=== PATIENT | male | born 1955 | race Two or more races ===

== ENCOUNTER 2019-01-17 13:00 | Outpatient (AMBR) | payer MEDICARE, MEDICAID, SELFPAY ==
--- NOTE | 2019-01-07 10:47 | PTNOTE_ITS ---
PT Outpatient Daily Note Date of Service: January 07, 2019 OP Daily Note Visit Reasons: left knee pain Outpatient Physical Therapy Treatment Date: 01/07/19 Subjective: Pt's knee feels good. Pt mention that his PCP is planning to do a chest MRI. At this point his providers are not sure why he's containing fluid in his body. His PCP gave him some water pill and he's lost 6 lbs Objective: Please see flow chart for list of ther ex performed Assessment: minimal exertion in therapy session; no noted SOB throughout PT se ssion. Pt advised to head back to PCP as indicated if he continues to have SOB. Pt's ambulation continues to improve with no antalgic gait Plan: Continue with PT Length of Time (minutes) of Treatment: 30 Minutes Office Procedures PT Procedures PT Date of Service: 01/07/19 Therapeutic Exercise 30 minutes: Yes
--- NOTE | 2019-01-09 11:19 | PT.ODAYNRPT ---
PT Outpatient Daily Note Date of Service: January 09, 2019 OP Daily Note Visit Reasons: left knee pain Outpatient Physical Therapy Treatment Date: 01/09/19 Subjective: Pt's knee feels good. No SOB lately. Pt will like his knee to be measure today Objective: Left Knee Flexion AROM: 121 deg Assessment: Pt exhibit good knee flexion AROM; balance and strength continues to improve with minimal exertion Plan: Continue with PT Length of Time (minutes) of Treatment: 30 Minutes Office Procedures PT Procedures PT Date of Service: 01/07/19 Therapeutic Exercise 30 minutes: Yes PT Procedures PT Date of Service: 01/09/19 Therapeutic Exercise 30 minutes: Yes
--- NOTE | 2019-01-17 14:15 | PT.ODAYNRPT ---
PT Outpatient Daily Note Date of Service: January 17, 2019 OP Daily Note Visit Reasons: left knee pain Outpatient Physical Therapy Treatment Date: 01/17/19 Subjective: pt doing well and wants to complete one more visit to be DC. Objective: see flow sheet. Assessment: pt performed well on his balance exercises. he has no complaints. although he would use his hand against the rail at times to keep from losing his balance but would not grab the rail. he ambulates well with no AD no compensation. he is able to step onto the stair case with no difficulty. overall pt is progressing well. he denied pain during and after ther ex. Plan: continue POC per PT. Length of Time (minutes) of Treatment: 30 Minutes Office Procedures PT Procedures PT Date of Service: 01/07/19 Therapeutic Exercise 30 minutes: Yes PT Procedures PT Date of Service: 01/09/19 Therapeutic Exercise 30 minutes: Yes PT Procedures PT Date of Service: 01/17/19 Therapeutic Exercise 30 minutes: Yes
== END 2019-02-04 23:59 | disposition home or self-care (01) ==
PROVIDERS: PCP Physician Assistant; Referring Provider Physician Assistant; Visit Provider Orthopaedic Surgery
DX: M17.12 Unilateral primary osteoarthritis, left knee (principal); R53.1 Weakness; R26.2 Difficulty in walking, not elsewhere classified; Z47.1 Aftercare following joint replacement surgery; Z96.652 Presence of left artificial knee joint
CPT/HCPCS: 97110

== ENCOUNTER → 2023-12-07 | Outpatient (CLI) | payer OTHER, SELFPAY ==
[2023-12-07 14:55] LABS: Calcium, Ionized 4.7 mg/dL (4.6-5.6)
[2023-12-07 15:17] LABS: Parathyroid Hormone Intact 55.6 pg/ml (18.5-88.0)
== END | disposition home or self-care (01) ==
LOC: COPL 14:37
PROVIDERS: PCP Internal Medicine; Referring Provider Internal Medicine; Visit Provider Internal Medicine
DX: E83.52 Hypercalcemia (principal)
CPT/HCPCS: 36415; 82330; 83970

== ENCOUNTER → 2023-12-11 | Outpatient (CLI) | payer OTHER, SELFPAY ==
[2023-12-11 12:47] LABS: Basophils # (Auto) 0.1 Thou/mm3 (0.0-0.2); Basophils % (Auto) 0 % (0-2.5); Eosinophils # (Auto) 0.2 Thou/mm3 (0.0-0.5); Eosinophils % (Auto) 1 % (0-10); Hematocrit 40.8 % (41.0-53.0); Hemoglobin 14.3 g/dL (13.5-16.0); Immature Granulocytes % (Auto) 0 % (0-0); Immature Granulocytes Auto 0.03 Thou/mm3 (0.00-0.00); Immature Reticulocyte Fraction 9.6 % (2.3-13.4); Lymphocytes % (Auto) 26 % (10-50); Mean Corpuscular Hemoglobin 29.2 pg (25.0-35.0); Mean Corpuscular Volume 83 fL (80-100); Monocytes # (Auto) 1.4 Thou/mm3 (0.0-0.8); Monocytes % (Auto) 12 % (0-12); Neutrophils # (Auto) 7.3 Thou/mm3 (1.8-7.7); Neutrophils % (Auto) 61 % (37-80); Nucleated Red Blood Cell % 0 /100 WBC (0); Platelet Count 321 Thou/mm3 (140-440); RDW Standard Deviation 40.5 fL (35.1-43.9); Red Blood Count 4.89 Miln/mm3 (4.50-5.90); Reticulocyte % (Auto) 1.9 % (0.5-1.5); Reticulocyte Absolute Auto 91.4 Biln/L (25.0-75.0); Reticulocyte Hgb Content 33.1 pg (28.0-35.0); White Blood Count 11.9 Thou/mm3 (3.8-10.6)
[2023-12-11 13:04] LABS: Alanine Aminotransferase 32 U/L (10-49); Albumin, Serum 4.9 gm/dL (3.4-4.8); Albumin/Globulin Ratio 1.9 (1.2-2.2); Alkaline Phosphatase 83 U/L (46-116); Anion Gap 9 (7-16); Aspartate Amino Transferase 23 U/L (0-34); BUN/Creatinine Ratio 18 Ratio (12-20); Bilirubin,Total 0.5 mg/dL (0.3-1.2); Blood Urea Nitrogen 24 mg/dL (9-23); Calcium 10.6 mg/dL (8.3-10.6); Calcium (Corrected) 10.6 mg/dL (8.5-10.1); Carbon Dioxide 30.3 mMol/L (20.0-31.0); Chloride 94 mMol/L (98-107); Creatinine (Component) 1.3 mg/dL (0.6-1.3); Globulin 2.6 gm/dL (2.3-3.5); Glucose 204 mg/dL (74-106); Osmolality,Calculated 276 (275-295); Potassium 3.4 mMol/L (3.4-5.1); Sodium 133 mMol/L (136-145); Total Protein 7.5 gm/dL (5.7-8.2); eGFR 59 See Note
[2023-12-11 13:35] LABS: Ferritin 47 ng/mL (10.5-307.3); Iron 62 mcg/dL (65-175); Percent Iron Saturation 18 % (20-55); Total Iron Binding Capacity 330 mcg/dL (250-425); Unsaturated Iron Binding 268 (225-295)
[2023-12-11 14:07] LABS: Folate 15.24 ng/mL (>5.38); Vitamin B12 > 2000 pg/mL (211-911)
== END | disposition home or self-care (01) ==
LOC: SCTO 11:22
PROVIDERS: PCP Internal Medicine; Referring Provider Nurse Practitioner Family; Visit Provider Nurse Practitioner Family
DX: D64.9 Anemia, unspecified (principal)
CPT/HCPCS: 36415; 80053; 82607; 82728; 82746; 83540; 83550; 85025; 85046

== ENCOUNTER → 2023-12-14 | Outpatient (CLI) | payer OTHER, MEDICAID, SELFPAY ==
[2023-12-14 15:34] LABS: Urea Breath Test Negative (Negative)
== END | disposition home or self-care (01) ==
LOC: COPL 12:57
PROVIDERS: PCP Internal Medicine; Referring Provider Internal Medicine; Visit Provider Internal Medicine
DX: K59.00 Constipation, unspecified (principal)
CPT/HCPCS: 83013; 83014

== ENCOUNTER → 2023-12-18 | Outpatient (CLI) | payer OTHER, MEDICAID, SELFPAY ==
[2023-12-18 13:56] LABS: Basophils # (Auto) 0.1 Thou/mm3 (0.0-0.2); Basophils % (Auto) 1 % (0-2.5); Eosinophils # (Auto) 0.2 Thou/mm3 (0.0-0.5); Eosinophils % (Auto) 2 % (0-10); Hematocrit 44.1 % (41.0-53.0); Immature Granulocytes % (Auto) 0 % (0-0); Immature Granulocytes Auto 0.03 Thou/mm3 (0.00-0.00); Lymphocytes # (Auto) 3.6 Thou/mm3 (1.0-4.8); Lymphocytes % (Auto) 35 % (10-50); Mean Corpuscular Hemoglobin 28.6 pg (25.0-35.0); Mean Corpuscular Volume 84 fL (80-100); Monocytes % (Auto) 10 % (0-12); Neutrophils # (Auto) 5.6 Thou/mm3 (1.8-7.7); Neutrophils % (Auto) 53 % (37-80); Nucleated Red Blood Cell % 0 /100 WBC (0); Platelet Count 363 Thou/mm3 (140-440); RDW Standard Deviation 40.6 fL (35.1-43.9); Red Blood Count 5.25 Miln/mm3 (4.50-5.90); White Blood Count 10.5 Thou/mm3 (3.8-10.6)
== END | disposition home or self-care (01) ==
LOC: SCTO 12:08
PROVIDERS: PCP Internal Medicine; Referring Provider Nurse Practitioner Family; Visit Provider Nurse Practitioner Family
DX: D64.9 Anemia, unspecified (principal)
CPT/HCPCS: 36415; 85025

== ENCOUNTER 2023-12-19 13:37 | Outpatient (RCR) | payer OTHER, SELFPAY | END 2024-01-05 23:59 | disposition home or self-care (01) | LOC: SCTC 13:37 | PROVIDERS: PCP Internal Medicine; Referring Provider Internal Medicine; Visit Provider Nurse Practitioner Family | DX: D64.9 Anemia, unspecified (principal); M54.50 Low back pain, unspecified; R11.2 Nausea with vomiting, unspecified; I12.9 Hypertensive chronic kidney disease with stage 1 through stage 4 chronic kidney disease, or unspecified chronic kidney disease; E11.22 Type 2 diabetes mellitus with diabetic chronic kidney disease; N18.30 Chronic kidney disease, stage 3 unspecified; I25.10 Atherosclerotic heart disease of native coronary artery without angina pectoris; F10.11 Alcohol abuse, in remission; K21.9 Gastro-esophageal reflux disease without esophagitis | CPT/HCPCS: 99212; G0463 ==

== ENCOUNTER → 2024-01-09 | Outpatient (CLI) | payer OTHER, MEDICAID, SELFPAY ==
[2024-01-09 16:52] LABS: Basophils % (Auto) 0 % (0-2.5); Eosinophils % (Auto) 0 % (0-10); Hematocrit 41.6 % (41.0-53.0); Hemoglobin 14.5 g/dL (13.5-16.0); Immature Granulocytes % (Auto) 0 % (0-0); Immature Granulocytes Auto 0.04 Thou/mm3 (0.00-0.00); Lymphocytes # (Auto) 2.1 Thou/mm3 (1.0-4.8); Lymphocytes % (Auto) 21 % (10-50); Mean Corpuscular HGB Conc 34.9 g/dl (31.0-37.0); Mean Corpuscular Hemoglobin 29.1 pg (25.0-35.0); Mean Corpuscular Volume 83 fL (80-100); Monocytes # (Auto) 0.4 Thou/mm3 (0.0-0.8); Monocytes % (Auto) 4 % (0-12); Neutrophils # (Auto) 7.3 Thou/mm3 (1.8-7.7); Neutrophils % (Auto) 74 % (37-80); Nucleated Red Blood Cell % 0 /100 WBC (0); Platelet Count 323 Thou/mm3 (140-440); RDW Standard Deviation 37.9 fL (35.1-43.9); Red Blood Count 4.99 Miln/mm3 (4.50-5.90); White Blood Count 9.9 Thou/mm3 (3.8-10.6)
[2024-01-09 16:59] LABS: Prothrombin Time 10.9 Seconds (9.0-12.2)
[2024-01-09 17:10] LABS: Alanine Aminotransferase 59 U/L (10-49); Albumin, Serum 5.1 gm/dL (3.4-4.8); Albumin/Globulin Ratio 2.2 (1.2-2.2); Alkaline Phosphatase 74 U/L (46-116); Anion Gap 10 (7-16); Aspartate Amino Transferase 27 U/L (0-34); BUN/Creatinine Ratio 23 Ratio (12-20); Bilirubin,Total 0.6 mg/dL (0.3-1.2); Blood Urea Nitrogen 28 mg/dL (9-23); Calcium 10.2 mg/dL (8.3-10.6); Calcium (Corrected) 10.2 mg/dL (8.5-10.1); Carbon Dioxide 25.6 mMol/L (20.0-31.0); Chloride 100 mMol/L (98-107); Creatinine (Component) 1.2 mg/dL (0.6-1.3); Globulin 2.3 gm/dL (2.3-3.5); Glucose 121 mg/dL (74-106); Osmolality,Calculated 278 (275-295); Potassium 3.5 mMol/L (3.4-5.1); Sodium 136 mMol/L (136-145); Total Protein 7.4 gm/dL (5.7-8.2); eGFR > 60 See Note
== END | disposition home or self-care (01) ==
LOC: COPL 16:11
PROVIDERS: PCP Internal Medicine; Referring Provider Specialist; Visit Provider Specialist
DX: D62 Acute posthemorrhagic anemia (principal); K29.00 Acute gastritis without bleeding; R10.30 Lower abdominal pain, unspecified
CPT/HCPCS: 36415; 80053; 82105; 85025; 85610

== ENCOUNTER 2024-01-11 10:15 | Day surgery (SDC) | payer OTHER, MEDICAID, SELFPAY ==
[2024-01-11] VITALS (7 sets, daily range): BP systolic 140–180; BP diastolic 79–104; PULSE 69–85; RESP 12–18; TEMP 36.4–36.7; O2SAT 95–100; BMI 32.5
[2024-01-11] MEDS: DiphenhydrAMINE INJ 50 MG/ML VIAL 25 MG IV (12:24)
[2024-01-11] MEDS: fentaNYL CIT INJ 50 mCg/ML AMP 2ML (ASD USE ONLY) IV (12:26)
[2024-01-11] MEDS: MIDAZOLAM INJ 1 MG/ML VIAL 2 ML (ASD USE ONLY) 2 MG IV (12:26)
--- NOTE | 2024-01-11 13:25 | SUR.PHASEII ---
d/c instructions given to pt and family by MERARI Fritz/[employer].
== END 2024-01-11 13:21 | disposition home or self-care (01) ==
PROVIDERS: PCP Internal Medicine; Referring Provider Specialist; Visit Provider Specialist
PROC: (CPT 43239; principal; 2024-01-11 08:30)
DX: K76.6 Portal hypertension (principal); K29.71 Gastritis, unspecified, with bleeding; I85.11 Secondary esophageal varices with bleeding
CPT/HCPCS: 43235; J1200; J2250; J3010

== ENCOUNTER 2024-01-28 18:25 | Emergency (ER) | payer OTHER, MEDICAID, SELFPAY ==
--- NOTE | 2024-01-28 18:44 | EDNOTE_ITS ---
ED Male Genitalurinary RME/HPI General Chief complaint: Urogenital-Male Stated complaint: WANTS CATHETER REMOVED Time Seen by Provider: 01/28/24 18:32 Arrival date/time: 01/28/24 18:25 RME / HPI RME / HPI Narrative: This section includes all my notes and documentations, including HPI, PE, and ED course. Jethro Goodwin MD HPI: 69yo male who recently had back surgery on 01/23/24 presents to the ED to get his nguyen catheter removed. Patient states he had back surgery on the , reporting he only stayed for one day and was discharged due to the facility he was at not having a bed available. Patient states he was advised to come in to [facility] ED in order to get his nguyen removed. He denies any fever or chills. No other complaints reported. ROS: All negative except as documented in HPI. Physical Exam: General: Alert and oriented. No acute distress when remaining still. Eyes: Conjunctivae and lids clear. ENT: No nasal congestion. Neck: Supple. Heart: RRR. Lungs: No respiratory distress. Good air movement. No rhonchi, wheezing, rales. Abdomen: Soft and nontender. Skin: Warm and dry. Neuro: Alert and oriented X 3. UA shows UTI. At this point, diagnoses include Nguyen catheter removal and UTI. Prescribed ABX. Based on my best medical judgment, made decision no further evaluation or treatment indicated at this time. Patient understands and agrees to the discharge instructions customized and printed, see below. Discharge Instructions from Dr. Goodwin printed for you: 1. As you requested, your Nguyen catheter was removed. 2. Take cefdinir for UTI until I call you with your urine test results. UTI is very common with Nguyen catheter. 3. For good hydration and to prevent urinary retention, increase oral fluid and maintain clear urine. If dark or yellow, increase oral fluid. 4. See your private doctor on 01/31/2024 for recheck. Ask to check for the final urine culture results in case I don't call you. 5. Seek immediate medical care with any concerns. Jethro Goodwin MD Related Data Home Medications ?Medication ?Instructions ?Recorded ?Confirmed empagliflozin 25 mg tablet 25 mg PO QDAY 06/19/23 01/11/24 (Jardiance) furosemide 20 mg tablet 20 mg PO QDAY 06/19/23 01/11/24 metformin 500 mg tablet 500 mg PO BIDWMEAL 06/19/23 01/11/24 valsartan 320 1 tab PO QDAY 06/19/23 01/11/24 mg-hydrochlorothiazide 12.5 mg tablet amlodipine 5 mg tablet 2.5 mg PO QDAY 01/11/24 01/11/24 zolpidem 10 mg tablet 10 mg PO HS 01/11/24 01/11/24 Previous Rx's ?Medication ?Instructions ?Recorded cefdinir 300 mg capsule 300 mg PO BID #14 caps 01/28/24 Allergies Allergy/AdvReac Type Severity Reaction Status Date / Time No Known Allergies Allergy Verified 01/28/24 18:27 Review of Systems Review of Systems Systems Reviewed: All systems reviewed, normal except as documented Past Medical History Past Medical History NEUROLOGIC: Negative Neurological Disorders or Seizures CARDIAC: Positive Cardiac Disorders, Hypercholesterolemia and Hypertension; Negative Congestive Heart Failure RESPIRATORY: Negative Chronic Obstructive Pulmonary Disease (COPD) or Asthma GASTROINTESTINAL: Positive Gastrointestinal Disorders and Gastroesophageal Reflux Disease; Negative Hepatitis GENITOURINARY: Positive Benign Prostatic Hyperplasia; Negative Genitourinary Disorders or Renal Disease MUSCULOSKELETAL: Positive Musculoskeletal Disorders and Arthritis ENDOCRINE: Positive Endocrine Disorders and Diabetes Mellitus Type 2; Negative Diabetes Mellitus Type 1 HEMATOLOGIC: Positive Blood Disorders and Anemia; Negative Sickle Cell Disease PSYCHO/SOCIAL: Positive Depression (NO MEDS) and Anxiety (NO MEDS) OTHER HISTORY: Positive Hospitalization (APRIL), Falls, Blood Transfusions and Chicken Pox; Negative Autoimmune Disease, Blood Transfusion Reaction, Anesthesia Reactions, MRSA or Cancer Family History FAMILY HISTORY: Positive Family Surgery; Negative Family Psychiatric Problems, Family Respiratory Disorders, Family Cardiac Disorders, Family Gastrointestinal Problems, Family Cancer or Family Anesthesia Reaction Surgical History SURGICAL: Positive Joint Replacement (BILATERAL KNEE AND LEFT SHOULDER); Negative Amputation Social History SMOKING STATUS: Never smoker SUBSTANCE USE: does not use ED Exam Narrative Physical exam: As noted in HPI. Course Quality Measures none Orders Category Date Time Status Nguyen [Urinary Catheter, Remove] ONCE Care 01/28/24 19:00 Active Miscellaneous Nursing Order NOW Care 01/28/24 18:44 Active UA, C/S IF [Urinalysis, C/S if Indicated] Stat Lab 01/28/24 18:44 Ordered Vital Signs Vital signs: Vital Signs Temperature 98.4 F 01/28/24 19:06 Pulse Rate 96 01/28/24 19:06 Respiratory Rate 18 01/28/24 19:06 Blood Pressure 134/75 H 01/28/24 19:06 Pulse Oximetry (%) 99 01/28/24 19:06 Oxygen Delivery Method Room Air 01/28/24 19:06 Urogenital - Male MDM Narrative MDM Narrative:: Scribe Attestation: 01/28/24 - Bella Orozco am scribing for and in the presence of Dr. Goodwin. Patient data External records reviewed:: [facility] previous records (Per chart review, patient was admitted here on 06/18/23 for anemia.) Clinical information provided by:: patient Social determinants that could affect healthcare access:: none Patient has the following chronic illnesses:: HTN, HLD, DM, BPH, recent back surgery on 01/23/24 How is presenting disease/condition affected by chronic disease/condition?: caused by Evaluation data The following diagnostics were reviewed and interpreted by me:: lab results Lab and/or radiology exams considered but not ordered:: none Interpretation Summary: UTI Medications / Prescriptions Medications or Prescriptions considered but not ordered:: none Medication administrations:: None Consultations Consultation(s) initiated? (list below): No Diagnosis Urogenital Male Differential Diagnosis: urinary tract infection and other (encounter for nguyen catheter removal, BPH) Most likely diagnosis given after review of the tests above:: encounter for nguyen catheter removal Admission Indicated Admission indicated?: not indicated Explain why admission is indicated or not indicated:: Admission criteria not met Admission Request Was there a request for admission?: No Disposition Plan Disposition Plan: Discharge Discharge Attestation Discharge Attestation: The patient and all family members were given an opportunity to ask questions and understood the discharge instructions. Discharge instructions specifically effects, indications for sooner follow up or return to the emergency department, and the expected course of current diagnosis. Patient condition: Stable Discharge Plan Plan Patient Disposition: HOME (Self Care) Prescriptions/Referrals Prescriptions/Med Rec: New cefdinir 300 mg capsule 300 mg PO BID Qty: 14 0RF No Action metformin 500 mg Tablet 500 mg PO BIDWMEAL Jardiance 25 mg Tablet 25 mg PO QDAY valsartan-hydrochlorothiazide 320-12.5 mg Tablet 1 tab PO QDAY furosemide 20 mg Tablet 20 mg PO QDAY amlodipine 5 mg tablet 2.5 mg PO QDAY Patient Comments: TAKE 1 AND 1/2 TABLETS BY MOUTH EVERY DAY zolpidem 10 mg tablet 10 mg PO HS Hold Instructions: Resume on 01/12/24. Patient Comments: TAKE ONE TABLET BY MOUTH AT BEDTIME FOR SLEEP Problem List Clinical Impression: Encounter for Nguyen catheter removal Patient/Caregiver Discharge Instructions Discharge Activity: activity as tolerated Education Materials: Nguyen Catheter Removal, ED Urinary Tract Infections in Men Additional Instructions: Discharge Instructions from Dr. Goodwin printed for you: 1. As you requested, your Nguyen catheter was removed. 2. Take cefdinir for UTI until I call you with your urine test results. UTI is very common with Nguyen catheter. 3. For good hydration and to prevent urinary retention, increase oral fluid and maintain clear urine. If dark or yellow, increase oral fluid. 4. See your private doctor on 01/31/2024 for recheck. Ask to check for the final urine culture results in case I don't call you. 5. Seek immediate medical care with any concerns. Print Language: Persian Stand Alone Forms: [employer] Info., Patient Portal Info Letter
[2024-01-28 19:06] VITALS: BP 134/75; PULSE 96; RESP 18; TEMP 36.9; O2SAT 99
[2024-01-28 19:58] LABS: Collection Type, Urine Clean Catch; Squamous Epithelial Cell,Urine 0 /hpf (0-5)
[2024-01-28 20:32] LABS: Bilirubin,Urine Negative (Negative); Blood,Urine 2+ (Negative); Budding Yeast,Urine Present; Clarity,Urine Turbid (Clear/Hazy); Glucose, Urine 4+ (Negative); Hyaline Casts,Urine < 1 /hpf (0-1); Ketones,Urine Negative (Negative); Leukocyte Esterase,Urine Negative (Negative); Nitrite,Urine Negative (Negative); PH,Urine 6.5 (5.0-7.0); Protein,Urine 1+ (Neg - Trace); RBC,Urine 1307 /hpf (0-3); Urobilinogen,Urine Negative mg/dL (0.0-1.0); WBC,Urine 48 /hpf (0-5)
[2024-01-28 20:33] LABS: Color,Urine Yellow (Lt Yel-Yel); Culture Indicated,Urine Yes
== END 2024-01-28 19:16 | disposition home or self-care (01) ==
PROVIDERS: Emergency Provider Emergency Medicine
DX: Z46.6 Encounter for fitting and adjustment of urinary device (principal); I10 Essential (primary) hypertension; E78.5 Hyperlipidemia, unspecified; N40.0 Benign prostatic hyperplasia without lower urinary tract symptoms; E11.9 Type 2 diabetes mellitus without complications
CPT/HCPCS: 81001; 87086; 99283

== ENCOUNTER → 2024-01-28 | Outpatient (CLI) | payer OTHER, MEDICAID, SELFPAY ==
--- NOTE | 2024-01-28 16:30 | XR_ITS ---
Examination: Abdomen sonogram, Limited Date and time of exam: January 28, 2024 1608 hrs. Indications: Diagnosis acute posthemorrhagic anemia several months Technique: Real-time rizzo scale transabdominal sonographic images of the upper abdomen obtained. Findings: Normal gallbladder Normal common bile duct 0.3 cm Pancreatic head 2.2 cm Liver 13.7 cm fatty infiltration irregular contour no focal liver lesions Normal hepatopedal portal venous flow Patent IVC Impression: Normal gallbladder Suspect primary hepatocellular disease
== END | disposition home or self-care (01) ==
PROVIDERS: PCP Specialist; Referring Provider Specialist; Visit Provider Specialist
DX: D62 Acute posthemorrhagic anemia (principal); R10.30 Lower abdominal pain, unspecified; K92.2 Gastrointestinal hemorrhage, unspecified
CPT/HCPCS: 76705

== ENCOUNTER 2024-05-18 12:50 | Emergency (ER) | payer OTHER, MEDICAID, SELFPAY ==
[2024-05-18 13:40] VITALS: BP 103/71; PULSE 73; RESP 20; TEMP 36.7; O2SAT 98
--- NOTE | 2024-05-18 14:06 | XR_ITS ---
Examination: CT lumbar spine, without contrast. 2-D sagittal reconstructions. 2-D coronal reconstructions. 3-D reconstructions. Date and time of exam:05/18/2024, 2:15 PM CTDI: vol (mGy):20.3 DLP: (mGycm):689 INDICATION: Low back pain with prior surgery. Technique: Multiple 1.25 mm axial sections of the lumbar spine have been obtained. 2-D sagittal and coronal reconstructions have been obtained. 3-D reconstructions have been obtained. Low dose protocols were performed. One or more of the following dose reduction techniques were used; automated exposure control, adjustment of the mA and/or KV according to patient size, use of iterative reconstruction technique. Findings: Scoliosis with convexity to the left. No acute fracture or dislocation. Diffuse multilevel degenerative changes throughout the lumbar spine involving all levels with loss of normal disc space height, endplate irregularities and marginal osteophytes. Findings are most pronounced at the elbow 2-L3 level. No foreign body. Scattered atherosclerotic calcifications in the aorta. IMPRESSION: No acute bony abnormality. Multilevel degenerative changes as above. MRI exam additional diagnostic information.
--- NOTE | 2024-05-18 14:08 | PD.EDRME ---
Rapid Medical Screening Exam E Arrival date/time: 05/18/24 12:50 This is a 69-year-old male who comes to the emergency room with complaints of lower back pain. Patient denies any trauma. Patient states that pain starts in his right buttock and goes all the way down his leg. Patient reports having this pain before. Patient recently had a lumbar decompression surgery. Patient states since his surgery he has not had the pain but for the last week he has been having the pain. And today it is worse. Patient denies any loss of bowel or bladder control. History of diabetes, high blood pressure. I have greeted and performed a focused initial assessment of this patient. Initial appropriate labs ordered at this time. A comprehensive ED assessment and evaluation of the patient and analysis of all test and completion of medical decision making process will be conducted by additional ED provider. Chief Complaint: General Adult/Misc Complain Time Seen by Provider: 05/18/24 13:33 Vital signs: Vital Signs Temperature 98.0 F 05/18/24 13:40 Pulse Rate 73 05/18/24 13:40 Respiratory Rate 20 05/18/24 13:40 Blood Pressure 103/71 05/18/24 13:40 Pulse Oximetry (%) 98 05/18/24 13:40 Oxygen Delivery Method Room Air 05/18/24 13:40
[2024-05-18] MEDS: HYDROcodone/APAP 5/325 TABLET 1 TAB PO (15:00)
[2024-05-18] MEDS: CYCLObenzaPRINE 5 MG TABLET 10 MG PO (15:00)
[2024-05-18] MEDS: KETOROLAC INJ 60 MG/2 ML VIAL IM (15:01)
--- NOTE | 2024-05-18 15:28 | EDNOTE_ITS ---
<Statement entered by Kely Danielle MD - 05/18/24 17:01> As co-signing physician, I was present and available for consult prn. I concur with the plan and care as documented by the midlevel provider. ED General RME/HPI General Chief complaint: General Adult/Misc Complain Stated complaint: SEVERE PAIN IN L) BUTT SHOOTING DOWN L) LEG 2WKS Time Seen by Provider: 05/18/24 13:33 Arrival date/time: 05/18/24 12:50 CC: The left low back pain that radiates down the back of his buttock and into his leg. HPI ongoing for the past 15 days. The patient had surgery on his back 8 months ago for similar pain bend over 15 days ago felt a pop sensation experience the pain. Pain is worse when ambulating but relieved or absent when sitting. The patient is gotten no relief with OTC medication does not follow-up with his back doctor or his primary care doctor. Patient denies any bowel or b ladder symptoms saddle anesthesia numbness tingling or weakness in the lower extremities. Currently the patient is in mild discomfort but not in any acute distress. RME / HPI RME / HPI narrative: 05/18/24 12:50 This is a 69-year-old male who comes to the emergency room with complaints of lower back pain. Patient denies any trauma. Patient states that pain starts in his right buttock and goes all the way down his leg. Patient reports having this pain before. Patient recently had a lumbar decompression surgery. Patient states since his surgery he has not had the pain but for the last week he has been having the pain. And today it is worse. Patient denies any loss of bowel or bladder control. History of diabetes, high blood pressure. I have greeted and performed a focused initial assessment of this patient. Initial appropriate labs ordered at this time. A comprehensive ED assessment and evaluation of the patient and analysis of all test and completion of medical decision making process will be conducted by additional ED provider. Related Data Home Medications ?Medication ?Instructions ?Recorded ?Confirmed empagliflozin 25 mg tablet 25 mg PO QDAY 06/19/23 12/07/29 (Jardiance) furosemide 20 mg tablet 20 mg PO QDAY 06/19/2301/10 metformin 500 mg tablet 500 mg PO BIDWMEAL 06/19/23 01/11/24 valsartan 320 1 tab PO QDAY 06/19/2301/10 mg-hydrochlorothiazide 12.5 mg tablet amlodipine 5 mg tablet 2.5 mg PO QDAY 01/11/2407/29 zolpidem 10 mg tablet 10 mg PO HS 01/11/24 4 Held on 01/11/24. Instructions: Resume on 01/12/24. Previous Rx's ?Medication ?Instructions ?Recorded cefdinir 300 mg capsule 300 mg PO BID #14 caps 01/27 cyclobenzaprine 10 mg tablet 10 mg PO TID #14 tabs meloxicam 7.5 mg tablet 7.5 mg PO QDAY #10 tabs 05/06 04/29 Allergies Allergy/AdvReac Type Severity Reaction Status Date / Time No Known Allergies Allergy Verified 05/18/24 12:58 Review of Systems Review of Systems Narrative Review of Systems: GEN: No fever, no chills, no weight loss EYES: No discharge, no visual changes, no pain HEENT: No ear pain, no congestion, no sore throat PULM: No shortness of breath, no cough, no congestion CV: No chest pain, no dyspnea on exertion, no palpitations GI: No nausea, no vomiting, no diarrhea, no pain, no constipation : No frequency, no urgency, no dysuria MUSC/SKEL: No joint pain, + back pain SKIN: No rash PSYCH: No hallucinations, no depression HEME/LYMPH: No easy bleeding or bruising tendencies NEURO: No weakness, no headache Past Medical History Past Medical History NEUROLOGIC: Negative Neurological Disorders or Seizures CARDIAC: Positive Cardiac Disorders, Hypercholesterolemia and Hypertension; Negative Congestive Heart Failure RESPIRATORY: Negative Chronic Obstructive Pulmonary Disease (COPD) or Asthma GASTROINTESTINAL: Positive Gastrointestinal Disorders and Gastroesophageal Reflux Disease; Negative Hepatitis GENITOURINARY: Positive Benign Prostatic Hyperplasia; Negative Genitourinary Disorders or Renal Disease MUSCULOSKELETAL: Positive Musculoskeletal Disorders and Arthritis ENDOCRINE: Positive Endocrine Disorders and Diabetes Mellitus Type 2; Negative Diabetes Mellitus Type 1 HEMATOLOGIC: Positive Blood Disorders and Anemia; Negative Sickle Cell Disease PSYCHO/SOCIAL: Positive Depression (NO MEDS) and Anxiety (NO MEDS) OTHER HISTORY: Positive Hospitalization (APRIL), Falls, Blood Transfusions and Chicken Pox; Negative Autoimmune Disease, Blood Transfusion Reaction, Anesthesia Reactions, MRSA or Cancer Family History FAMILY HISTORY: Positive Family Surgery; Negative Family Psychiatric Problems, Family Respiratory Disorders, Family Cardiac Disorders, Family Gastrointestinal Problems, Family Cancer or Family Anesthesia Reaction Surgical History SURGICAL: Positive Joint Replacement (BILATERAL KNEE AND LEFT SHOULDER); Negative Amputation Social History SMOKING STATUS: Never smoker SUBSTANCE USE: does not use ED Exam Narrative Physical exam: [General: In mild discomfort but not in any acute distress Head normocephalic HEENT: Within acceptable limits Neck is supple nontender Chest equal chest rise nontender to palpation Respiratory: Clear to auscultation no wheezes crackles or rubs CV: Rate rhythm is regular no murmurs rubs or clicks Abdomen is distended secondary to body habitus soft nontender no masses positive bowel sounds all 4 quadrants Back: No CVA tenderness no spinous process tenderness from cervical spine thoracic and lumbar spine. Observed ambulating. Skin: Intact no petechiae rash induration ulceration or crepitus Extremities: Moving all extremity against resistance cap refill less than 2 seconds neurosensory intact Neuro: Awake alert oriented x3 Glascow coma 15 no focal deficits] Course Quality Measures VTE prophylaxis Orders Category Date Time Status CT lumbar spine wo con Stat Exams 05/18/24 14:06 Completed CYCLObenzaPRINE [Flexeril] Med 05/18/24 14:07 Discontinued 10 mg PO X1 ONE HYDROcodone*/APAP 5/325 [Ewing 5/325] Med 05/18/24 14:07 Discontinued 1 tab PO X1 ONE Ketorolac Inj [Toradol Inj] Med 05/18/24 14:07 Discontinued 60 mg IM X1 ONE Vital Signs Vital signs: Vital Signs Temperature 98.0 F 05/18/24 13:40 Pulse Rate 73 05/18/24 13:40 Respiratory Rate 20 05/18/24 13:40 Blood Pressure 103/71 05/18/24 13:40 Pulse Oximetry (%) 98 05/18/24 13:40 Oxygen Delivery Method Room Air 05/18/24 13:40 [facility] Patient data External records reviewed:: [facility] previous records Clinical information provided by:: patient Social determinants that could affect healthcare access:: none Patient has the following chronic illnesses:: Back pain chronic with back surgery 8 months ago How is presenting disease/condition affected by chronic disease/condition?: exacerbated by Evaluation data The following diagnostics were reviewed and interpreted by me:: radiology exam(s) Lab and/or radiology exams considered but not ordered:: CT is unremarkable Interpretation Summary: Low back pain Medications Medications considered but not ordered:: None Medication administrations:: Medication Administration History Discontinued Medications Hydrocodone Bitart/Acetaminophen (Hydrocodone/Apap 5/325 Tablet) 1 tab PO X1 ONE Stop: 05/18/24 14:08 Last Admin: 05/18/24 15:00 Dose: 1 tab Documented By: ROJAS Cyclobenzaprine HCl (Cyclobenzaprine 5 Mg Tablet) 10 mg PO X1 ONE Stop: 05/18/24 14:08 Last Admin: 05/18/24 15:00 Dose: 10 mg Documented By: ROJAS Ketorolac Tromethamine (Ketorolac Inj 60 Mg/2 Ml Vial) 60 mg IM X1 ONE Stop: 05/18/24 14:08 Last Admin: 05/18/24 15:01 Dose: 60 mg Documented By: ROJAS None Consultations Consultation(s) initiated? (list below): No Diagnosis Differential Diagnosis ED Complaint MDM: Back pain back fracture back strain Most likely diagnosis given after review of the tests above:: Low back pain Admission Indicated Admission indicated?: not indicated Explain why admission is indicated or not indicated:: Stable for outpatient follow-up Admission Request Was there a request for admission?: No Disposition Plan Disposition Plan: Discharge Discharge Attestation Discharge Attestation: The patient and all family members were given an opportunity to ask questions and understood the discharge instructions. Discharge instructions specifically effects, indications for sooner follow up or return to the emergency department, and the expected course of current diagnosis. Patient condition: Stable Medical Decision Making Differential Diagnosis Differential Diagnosis: Back pain back fracture back strain Discharge Plan Plan Patient Disposition: HOME (Self Care) Patient condition on transfer: Stable Prescriptions/Referrals Prescriptions/Med Rec: New cyclobenzaprine 10 mg tablet 10 mg PO TID Qty: 14 0RF meloxicam 7.5 mg tablet 7.5 mg PO QDAY Qty: 10 0RF No Action metformin 500 mg Tablet 500 mg PO BIDWMEAL Jardiance 25 mg Tablet 25 mg PO QDAY valsartan-hydrochlorothiazide 320-12.5 mg Tablet 1 tab PO QDAY furosemide 20 mg Tablet 20 mg PO QDAY cefdinir 300 mg capsule 300 mg PO BID Qty: 14 0RF amlodipine 5 mg tablet 2.5 mg PO QDAY Patient Comments: TAKE 1 AND 1/2 TABLETS BY MOUTH EVERY DAY zolpidem 10 mg tablet 10 mg PO HS Patient Comments: TAKE ONE TABLET BY MOUTH AT BEDTIME FOR SLEEP Problem List Clinical Impression: Low back pain Patient/Caregiver Discharge Instructions Other Activity Instructions:: Avoid all lifting. Take the medications as prescribed, there is no relief after 10 to 12 days follow-up with your my grounds and nursery specialist or your primary care doctor. Education Materials: ED Back Pain (Acute or Chronic), ED Back and Neck Pain, General Print Language: Icelandic Stand Alone Forms: [employer] Award Info., Patient Portal Info Letter, Work/School Release PA/SIGN BUILDER Supervising Physician PA/SIGN BUILDER Supervising Physician: Carlos Castillo ENP
== END 2024-05-18 15:46 | disposition home or self-care (01) ==
LOC: SERX 15:49
PROVIDERS: Emergency Provider Emergency Medicine
DX: M54.50 Low back pain, unspecified (principal); E11.9 Type 2 diabetes mellitus without complications; E78.00 Pure hypercholesterolemia, unspecified; I10 Essential (primary) hypertension
CPT/HCPCS: 72131; 96372; 99284; J1885; A9270

== ENCOUNTER 2024-05-23 06:53 | Emergency (ER) | payer MEDICARE, SELFPAY ==
[2024-05-23 06:55] VITALS: BMI 31.1
[2024-05-23 07:13] VITALS: BP 118/64; PULSE 64; RESP 21; TEMP 36.8; O2SAT 98
--- NOTE | 2024-05-23 07:19 | PD.EDEXREM ---
ED Extremity Problem RME/HPI General Chief complaint: Extremity Problem,Nontraumatic Stated complaint: LEFT SCIATIC PAIN RADIATING DOWN LEG Time Seen by Provider: 05/23/24 07:18 Arrival date/time: 05/23/24 06:53 69-year-old male with history of hypertension diabetes presents to the emergency room with complaints of lower back pain. Patient denies any trauma. Patient states that pain starts in his right buttock and goes all the way down his leg. Patient reports having this pain before. Patient reports having lumbar decompression surgery approximate 4 months ago. Patient states since his surgery he has not had the pain but for the couple weeks he has been having the pain. Patient denies any loss of bowel or bladder control. Limitations: no limitations Related Data Home Medications ?Medication ?Instructions ?Recorded ?Confirmed empagliflozin 25 mg tablet 25 mg PO QDAY 06/19/23 01/11/24 (Jardiance) furosemide 20 mg tablet 20 mg PO QDAY 06/19/23 01/11/24 metformin 500 mg tablet 500 mg PO BIDWMEAL 06/19/23 01/11/24 valsartan 320 1 tab PO QDAY 06/19/23 01/11/24 mg-hydrochlorothiazide 12.5 mg tablet amlodipine 5 mg tablet 2.5 mg PO QDAY 01/11/24 01/11/24 zolpidem 10 mg tablet 10 mg PO HS 01/11/24 01/11/24 Held on 01/11/24. Instructions: Resume on 01/12/24. Previous Rx's ?Medication ?Instructions ?Recorded cefdinir 300 mg capsule 300 mg PO BID #14 caps 01/28/24 cyclobenzaprine 10 mg tablet 10 mg PO TID #14 tabs 05/18/24 meloxicam 7.5 mg tablet 7.5 mg PO QDAY #10 tabs 05/18/24 hydrocodone 5 mg-acetaminophen 325 1 tab PO BID PRN pain #10 tabs 05/23/24 mg tablet Allergies Allergy/AdvReac Type Severity Reaction Status Date / Time No Known Allergies Allergy Verified 05/23/24 06:55 Review of Systems Review of Systems Systems Reviewed: All systems reviewed, normal except as documented Constitutional Constitutional: Reports system reviewed and no additional complaints, except as documented, Denies fever(s) and Denies headache(s) Eyes Eyes: Reports system reviewed and no additional complaints, except as documented and Denies blurry vision ENT Ears, Nose, Mouth, and Throat: Reports system reviewed and no additional complaints, except as documented, Denies headache(s), Denies nasal congestion and Denies nasal discharge Cardiovascular Cardiovascular: Reports system reviewed and no additional complaints, except as documented, Denies chest pain and Denies dyspnea Respiratory Respiratory: Reports system reviewed and no additional complaints, except as documented, Denies chest congestion, Denies cough and Denies dyspnea Gastrointestinal Gastrointestinal: Reports system reviewed and no additional complaints, except as documented and Denies abdominal pain Musculoskeletal Musculoskeletal: Reports system reviewed and no additional complaints, except as documented, Denies arthralgias, Reports back pain, Denies deformity, Denies joint swelling and Reports other (Buttock pain radiating down left leg) Integumentary/Breasts Skin/Breast: Reports system reviewed and no additional complaints, except as documented and Denies rash Neurologic Neurologic: Reports system reviewed and no additional complaints, except as documented, Reports as per HPI and Denies headache(s) Past Medical History Past Medical History NEUROLOGIC: Negative Neurological Disorders or Seizures CARDIAC: Positive Cardiac Disorders, Hypercholesterolemia and Hypertension; Negative Congestive Heart Failure RESPIRATORY: Negative Chronic Obstructive Pulmonary Disease (COPD) or Asthma GASTROINTESTINAL: Positive Gastrointestinal Disorders and Gastroesophageal Reflux Disease; Negative Hepatitis GENITOURINARY: Positive Benign Prostatic Hyperplasia; Negative Genitourinary Disorders or Renal Disease MUSCULOSKELETAL: Positive Musculoskeletal Disorders and Arthritis ENDOCRINE: Positive Endocrine Disorders and Diabetes Mellitus Type 2; Negative Diabetes Mellitus Type 1 HEMATOLOGIC: Positive Blood Disorders and Anemia; Negative Sickle Cell Disease PSYCHO/SOCIAL: Positive Depression (NO MEDS) and Anxiety (NO MEDS) OTHER HISTORY: Positive Hospitalization (APRIL), Falls, Blood Transfusions and Chicken Pox; Negative Autoimmune Disease, Blood Transfusion Reaction, Anesthesia Reactions, MRSA or Cancer Family History FAMILY HISTORY: Positive Family Surgery; Negative Family Psychiatric Problems, Family Respiratory Disorders, Family Cardiac Disorders, Family Gastrointestinal Problems, Family Cancer or Family Anesthesia Reaction Surgical History SURGICAL: Positive Joint Replacement (BILATERAL KNEE AND LEFT SHOULDER); Negative Amputation Social History SMOKING STATUS: Never smoker SUBSTANCE USE: does not use ED Exam General Limitations: Present no limitations General appearance: Present alert and in no apparent distress Head Head exam: Present atraumatic, normocephalic and normal inspection Eye Eye exam: Present normal appearance, PERRL and EOMI ENT ENT exam: Present normal exam, normal oropharynx and mucous membranes moist Neck Neck exam: Present normal inspection, full ROM and trachea midline Chest Chest inspection: Present normal inspection and symmetric chest wall rise Respiratory Respiratory exam: Present normal lung sounds bilaterally Cardiovascular Cardiovascular exam: Present regular rate, normal rhythm and normal heart sounds Abdominal Exam Abdominal exam: Present soft and normal bowel sounds; Absent distention or tenderness Extremities Exam Extremities exam: Present normal inspection and full ROM Back Exam Back exam: Present normal inspection, full ROM, tenderness, muscle spasm, paraspinal tenderness, sciatic notch tenderness (L) and straight leg raise (L); Absent CVA tenderness (R) or CVA tenderness (L) Back 1 view image:  1. Pain Neurological Exam Neurological exam: Present alert, oriented X3 and CN II-XII intact Psychiatric Psychiatric exam: Present normal affect and normal mood Skin Skin exam: Present warm, dry, intact and normal color Course Quality Measures none Orders Category Date Time Status Ketorolac Inj [Toradol Inj] Med 05/23/24 07:25 Discontinued 30 mg IM X1 ONE Vital Signs Vital signs: Vital Signs Temperature 98.2 F 05/23/24 07:13 Pulse Rate 64 05/23/24 07:13 Respiratory Rate 21 H 05/23/24 07:13 Blood Pressure 118/64 05/23/24 07:13 Pulse Oximetry (%) 98 05/23/24 07:13 Oxygen Delivery Method Room Air 05/23/24 07:13 O2 saturation 98% room air within normal limits Extremity Problem MDM Narrative MDM Narrative:: 69-year-old male with history of hypertension diabetes presents to the emergency room with complaints of lower back pain. Patient denies any trauma. Patient states that pain starts in his right buttock and goes all the way down his leg. Patient reports having this pain before. Patient reports having lumbar decompression surgery approximate 4 months ago. Patient states since his surgery he has not had the pain but for the couple weeks he has been having the pain. Patient denies any loss of bowel or bladder control. On exam patient is ambulatory patient does not appear ill or toxic patient reports that this is not the worst pain of his life and he had similar symptoms in the past I did explain to the patient we will give him some Toradol discharged home with [place] and he must follow-up with his surgeon For emergent concerns patient instructed return immediately Patient data External records reviewed:: [facility] previous records Clinical information provided by:: patient Social determinants that could affect healthcare access:: none Patient has the following chronic illnesses:: See history How is presenting disease/condition affected by chronic disease/condition?: caused by Evaluation data The following diagnostics were reviewed and interpreted by me:: radiology exam(s) Lab and/or radiology exams considered but not ordered:: Review by me Interpretation Summary: Reviewed by me Medications / Prescriptions Medications or Prescriptions considered but not ordered:: Given Medication administrations:: Medication Administration History Discontinued Medications Ketorolac Tromethamine (Ketorolac Inj 30 Mg/Ml Vial) 30 mg IM X1 ONE Stop: 05/23/24 07:26 Last Admin: 05/23/24 07:36 Dose: 30 mg Documented By: DB Given Consultations Consultation(s) initiated? (list below): No Diagnosis Extremity Problem Differential Diagnosis: other (Back pain, sciatica) Most likely diagnosis given after review of the tests above:: Sciatica Admission Indicated Admission indicated?: not indicated Admission Request Was there a request for admission?: No Disposition Plan Disposition Plan: Discharge Discharge Attestation Discharge Attestation: The patient and all family members were given an opportunity to ask questions and understood the discharge instructions. Discharge instructions specifically effects, indications for sooner follow up or return to the emergency department, and the expected course of current diagnosis. Patient condition: Stable Discharge Plan Plan Patient Disposition: HOME (Self Care) Disposition Comment: stable Prescriptions/Referrals Prescriptions/Med Rec: New hydrocodone-acetaminophen 5-325 mg tablet 1 tab PO BID MDD 10 PRN (Reason: pain) Qty: 10 0RF No Action metformin 500 mg Tablet 500 mg PO BIDWMEAL Jardiance 25 mg Tablet 25 mg PO QDAY valsartan-hydrochlorothiazide 320-12.5 mg Tablet 1 tab PO QDAY furosemide 20 mg Tablet 20 mg PO QDAY cefdinir 300 mg capsule 300 mg PO BID Qty: 14 0RF amlodipine 5 mg tablet 2.5 mg PO QDAY Patient Comments: TAKE 1 AND 1/2 TABLETS BY MOUTH EVERY DAY zolpidem 10 mg tablet 10 mg PO HS Patient Comments: TAKE ONE TABLET BY MOUTH AT BEDTIME FOR SLEEP cyclobenzaprine 10 mg tablet 10 mg PO TID Qty: 14 0RF meloxicam 7.5 mg tablet 7.5 mg PO QDAY Qty: 10 0RF Problem List Clinical Impression: Left sided sciatica Patient/Caregiver Discharge Instructions Education Materials: ED Sciatica Additional Instructions: Please follow up with your primary care doctor in the next 24-48hrs for any worsening symptoms return here immediately Print Language: Cymraes Stand Alone Forms: [employer] Award Info., Patient Portal Info Letter PA/IN FLIGHT REFUELING MANAGER Supervising Physician PA/IN FLIGHT REFUELING MANAGER Supervising Physician: DR roca
[2024-05-23] MEDS: KETOROLAC INJ 30 MG/ML VIAL IM (07:36)
== END 2024-05-23 07:50 | disposition home or self-care (01) ==
LOC: SERX 07:51
PROVIDERS: Emergency Provider Emergency Medicine
DX: M54.42 Lumbago with sciatica, left side (principal); I10 Essential (primary) hypertension; E11.9 Type 2 diabetes mellitus without complications
CPT/HCPCS: 96372; 99283; J1885

== ENCOUNTER 2024-06-12 09:52 | Outpatient (RCR) | payer MEDICARE, MEDICAID, SELFPAY ==
--- NOTE | 2024-06-12 10:11 | PTNOTE_ITS ---
PT OP Initial Eval Patient Information Outpatient Physical Therapy Treatment Date: 06/12/24 Visit Reasons: Spinal Surgery Medical Diagnosis: Z98.890 R29.898 Start of Care: 06/12/24 Date of Onset: January 2024 Smoking Status Smoking Status: Never smoker Initial Assessment Subjective: Pt is 69 yr old male s/p lumbar surgery unspecified what was done. Pt reports he had low pain level for about 3 months post op until putting his socks on about 3 months after sx and has felt pain in the L/S since then. He reports pain is unbearable and intense. High pain with sitting and standing and he is using a 4WW with raised platform to lean on with arms. He is unable to lay on his back for more than a couple minutes. PMH: HTN, DM Imaging: CT of L/S 05/18/24 post op Scoliosis with convexity to the left. No acute fracture or dislocation. Diffuse multilevel degenerative changes throughout the lumbar spine involving all levels with loss of normal disc space height, endplate irregularities and marginal osteophytes. Findings are most pronounced at the L2-L3 level Pt goal: to get rid of the pain Objective: Trunk AROM: FB: 10 from floor Extension: 10% with pain Rotation: 40% of full in standing SLR: 30 deg with difficulty B [place] Reflex: R: 1+, L: absent Gait: leans fwd on walker, slow speed TTP: moderate of lumbar paraspinals. Assessment: Pt presents with high pain level of L/S in all positions consistent with CT scan that shows advanced DDD. Pt not likely to benefit from skilled therapy and has poor rehab potential to meet goals due to high pain level and signficant findings on CT. He will likely have more pain with therapy visits. Short Term and Delivery Driver/Customer Service Goals Eval and D/C Treatment Plan Eval and D/C Certification Dates: 06/12/24 to 07/13/24 Procedure Charges OP PT Eval Mod Complex 30 minutes: Yes
== END 2024-07-05 23:59 | disposition home or self-care (01) ==
LOC: CPTX 09:52
PROVIDERS: PCP Internal Medicine; Referring Provider Internal Medicine; Visit Provider Internal Medicine
DX: M54.50 Low back pain, unspecified (principal); Z98.890 Other specified postprocedural states; I10 Essential (primary) hypertension; E11.9 Type 2 diabetes mellitus without complications
CPT/HCPCS: 97162

== ENCOUNTER → 2024-07-17 | Outpatient (CLI) | payer MEDICARE, MEDICAID, SELFPAY ==
[2024-07-17 11:37] LABS: Basophils % (Auto) 0 % (0-2.5); Eosinophils # (Auto) 0.4 Thou/mm3 (0.0-0.5); Eosinophils % (Auto) 6 % (0-10); Hematocrit 40.6 % (41.0-53.0); Hemoglobin 13.7 g/dL (13.5-16.0); Immature Granulocytes % (Auto) 0 % (0-0); Immature Granulocytes Auto 0.03 Thou/mm3 (0.00-0.00); Lymphocytes # (Auto) 2.6 Thou/mm3 (1.0-4.8); Lymphocytes % (Auto) 33 % (10-50); Mean Corpuscular HGB Conc 33.7 g/dl (31.0-37.0); Mean Corpuscular Volume 80 fL (80-100); Monocytes # (Auto) 0.7 Thou/mm3 (0.0-0.8); Monocytes % (Auto) 9 % (0-12); Neutrophils # (Auto) 4.1 Thou/mm3 (1.8-7.7); Neutrophils % (Auto) 52 % (37-80); Nucleated Red Blood Cell % 0 /100 WBC (0); Platelet Count 296 Thou/mm3 (140-440); RDW Standard Deviation 39.6 fL (35.1-43.9); Red Blood Count 5.07 Miln/mm3 (4.50-5.90)
[2024-07-17 11:43] LABS: Glucose Estimated Average 131 mg/dL (80-131); Hemoglobin A1C 6.2 % Hgb (4.8-6.0)
[2024-07-17 12:09] LABS: Prostate Specific Antigen 0.99 ng/mL (0-4.00)
[2024-07-17 12:12] LABS: Alanine Aminotransferase 23 U/L (10-49); Albumin, Serum 4.6 gm/dL (3.4-4.8); Albumin/Globulin Ratio 1.7 (1.2-2.2); Alkaline Phosphatase 117 U/L (46-116); Anion Gap 12 (7-16); BUN/Creatinine Ratio 11 Ratio (12-20); Bilirubin,Total 0.8 mg/dL (0.3-1.2); Blood Urea Nitrogen 13 mg/dL (9-23); Calcium 9.4 mg/dL (8.3-10.6); Calcium (Corrected) 9.4 mg/dL (8.5-10.1); Cardiac Risk Estimate 3.1 RATIO (4.0-6.7); Chloride 104 mMol/L (98-107); Cholesterol 114 mg/dL (132-200); Creatinine (Component) 1.2 mg/dL (0.6-1.3); Globulin 2.7 gm/dL (2.3-3.5); Glucose 136 mg/dL (74-106); HDL Cholesterol 37 mg/dL (40-60); LDL Cholesterol,Calculated 37 mg/dL (0-130); Osmolality,Calculated 288 (275-295); Potassium 3.8 mMol/L (3.4-5.1); Sodium 144 mMol/L (136-145); Thyroid Stimulating Hormone 2.02 uIU/mL (0.55-4.78); Total Protein 7.3 gm/dL (5.7-8.2); Triglycerides 202 mg/dL (30-150); eGFR > 60 See Note
== END | disposition home or self-care (01) ==
LOC: COPL 10:54
PROVIDERS: PCP Internal Medicine; Referring Provider Internal Medicine; Visit Provider Internal Medicine
DX: E78.1 Pure hyperglyceridemia (principal); Z12.5 Encounter for screening for malignant neoplasm of prostate; Z79.899 Other long term (current) drug therapy
CPT/HCPCS: 36415; 80053; 80061; 83036; 84153; 84443; 85025

== ENCOUNTER → 2024-08-27 | Outpatient (CLI) | payer MEDICARE, MEDICAID, SELFPAY ==
--- NOTE | 2024-08-27 | XR_ITS ---
Examination: Lumbar spine, 5 views Technique: Lumbar spine AP, lateral, coned lateral lower lumbar spine, bilateral obliques 5 views Exam date and time: August 27, 2024 1110 hours INDICATIONS: Low back pain 7 months FINDINGS: Severe osteopenia Lumbar levoscoliosis 20 degrees Diffuse moderate to advanced lumbar degenerative disc disease, most prominent at L2-L3, L3-L4 No spondylolisthesis Mild to moderate lumbar spondylosis No acute lumbar fracture IMPRESSION: Diffuse moderate to advanced lumbar degenerative disc disease, most prominent L2-L3, L3-L4
== END | disposition home or self-care (01) ==
LOC: COPL 10:57 → CDIM 11:03
PROVIDERS: PCP Internal Medicine; Referring Provider Specialist; Visit Provider Specialist
DX: M51.360 Other intervertebral disc degeneration, lumbar region with discogenic back pain only (principal)
CPT/HCPCS: 72110

== ENCOUNTER → 2024-10-14 | Outpatient (CLI) | payer MEDICARE, MEDICAID, SELFPAY ==
[2024-10-14 11:29] LABS: Basophils # (Auto) 0.1 Thou/mm3 (0.0-0.2); Basophils % (Auto) 1 % (0-2.5); Eosinophils # (Auto) 0.4 Thou/mm3 (0.0-0.5); Eosinophils % (Auto) 5 % (0-10); Hematocrit 40.6 % (41.0-53.0); Hemoglobin 13.4 g/dL (13.5-16.0); Immature Granulocytes Auto 0.03 Thou/mm3 (0.00-0.00); Lymphocytes # (Auto) 3.2 Thou/mm3 (1.0-4.8); Lymphocytes % (Auto) 39 % (10-50); Mean Corpuscular HGB Conc 33.0 g/dl (31.0-37.0); Mean Corpuscular Hemoglobin 26.6 pg (25.0-35.0); Mean Corpuscular Volume 81 fL (80-100); Monocytes # (Auto) 1.0 Thou/mm3 (0.0-0.8); Monocytes % (Auto) 13 % (0-12); Neutrophils # (Auto) 3.5 Thou/mm3 (1.8-7.7); Neutrophils % (Auto) 43 % (37-80); Nucleated Red Blood Cell # 0.00 Thou/mm3 (0.00-0.00); Nucleated Red Blood Cell % 0 /100 WBC (0); Platelet Count 268 Thou/mm3 (140-440); RDW Standard Deviation 39.0 fL (35.1-43.9); Red Blood Count 5.04 Miln/mm3 (4.50-5.90); White Blood Count 8.2 Thou/mm3 (3.8-10.6)
[2024-10-14 11:56] LABS: Iron 55 mcg/dL (65-175)
[2024-10-14 11:57] LABS: Creatinine MALB Rnd Ur 90 mg/dL (30-125); Microalbumin, Random Urine < 3 mg/L (0-300)
[2024-10-14 12:11] LABS: Ferritin 24 ng/mL (10.5-307.3); Percent Iron Saturation 15 % (20-55); Total Iron Binding Capacity 353 mcg/dL (250-425); Unsaturated Iron Binding 298 (225-295)
== END | disposition home or self-care (01) ==
LOC: COPL 10:33
PROVIDERS: PCP Internal Medicine
DX: D64.9 Anemia, unspecified (principal); E11.9 Type 2 diabetes mellitus without complications
CPT/HCPCS: 36415; 82043; 82570; 82728; 83540; 83550; 85025

== ENCOUNTER → 2024-11-27 | Outpatient (CLI) | payer MEDICARE, MEDICAID, SELFPAY ==
[2024-11-27 12:16] LABS: Creatinine MALB Rnd Ur 104 mg/dL (30-125); Microalbumin Creat Ratio 4 mg/gCrea (<30); Microalbumin, Random Urine 4 mg/L (0-300)
[2024-11-27 12:16] LABS: B-Type Natriuretic Peptide 42 pg/mL (0-100)
[2024-11-27 12:18] LABS: Alanine Aminotransferase 26 U/L (10-49); Albumin, Serum 4.6 gm/dL (3.4-4.8); Albumin/Globulin Ratio 1.9 (1.2-2.2); Alkaline Phosphatase 96 U/L (46-116); Anion Gap 12 (7-16); Aspartate Amino Transferase 23 U/L (0-34); BUN/Creatinine Ratio 9 Ratio (12-20); Bilirubin,Total 0.8 mg/dL (0.3-1.2); Blood Urea Nitrogen 12 mg/dL (9-23); Calcium 9.5 mg/dL (8.3-10.6); Calcium (Corrected) 9.5 mg/dL (8.5-10.1); Carbon Dioxide 24.4 mMol/L (20.0-31.0); Cardiac Risk Estimate 3.4 RATIO (4.0-6.7); Chloride 102 mMol/L (98-107); Cholesterol 134 mg/dL (132-200); Creatinine (Component) 1.3 mg/dL (0.6-1.3); Globulin 2.4 gm/dL (2.3-3.5); Glucose 126 mg/dL (74-106); HDL Cholesterol 39 mg/dL (40-60); LDL Cholesterol,Calculated 58 mg/dL (0-130); Osmolality,Calculated 277 (275-295); Potassium 4.6 mMol/L (3.4-5.1); Sodium 138 mMol/L (136-145); Total Protein 7.0 gm/dL (5.7-8.2); Triglycerides 187 mg/dL (30-150); eGFR 59 See Note
== END | disposition home or self-care (01) ==
LOC: COPL 11:05
PROVIDERS: PCP Internal Medicine
DX: E11.9 Type 2 diabetes mellitus without complications (principal); E78.1 Pure hyperglyceridemia
CPT/HCPCS: 36415; 80053; 80061; 82043; 82570; 83880

== ENCOUNTER → 2024-12-08 | Outpatient (CLI) | payer MEDICARE, MEDICAID, SELFPAY ==
--- NOTE | 2024-12-08 16:26 | XR_ITS ---
Examination: Venous duplex lower extremity sonogram, bilateral. Date and time of exam: 12/08/2024, 4:34 p.m. INDICATION: Bilateral lower extremity edema COMPARISON: Left lower extremity venous ultrasound 12/01/2022 Technique: Multiple sonographic images of the deep venous system have been obtained. B-mode/2-D grayscale imaging of vascular structures and Doppler spectral analysis (waveforms) and color performed Both legs are examined. Findings: Deep venous systems do not demonstrate abnormal echogenicity. All visualized deep veins exhibit compressibility. All visualized deep veins exhibit augmentation. Impression: Negative for deep vein thrombosis in either lower extremity.
== END | disposition home or self-care (01) ==
LOC: SDIM 16:08
DX: R60.0 Localized edema (principal)
CPT/HCPCS: 93970